=== PATIENT | male | born 1990 | race Caucasian/White ===

== ENCOUNTER → 2023-01-06 | Outpatient (CLI) | payer BC ==
--- NOTE | 2023-01-06 09:18 | US ---
EXAMINATION TYPE: US abdomen limited DATE OF EXAM: 01/06/2023 COMPARISON: NONE CLINICAL INDICATION: Male, 32 years old with history of R19.09OTHER INTRA-ABDOMINAL AND PELVIC SWELLI NG; Left sided pain about a month ago x 1 day - resolved. TECHNIQUE: Multiple sonographic images of the left upper quadrant are obtained. FINDINGS: EXAM MEASUREMENTS: Spleen: 12.1 cm Left Kidney: 12.1 x 5.3 x 5.6 cm [employer] NOTES: no abnormalities seen LLQ 1. Spleen: wnl 2. Left Kidney: wnl IMPRESSION: No evidence for acute process.
--- NOTE | 2023-01-06 09:34 | US ---
EXAMINATION TYPE: US groin LT DATE OF EXAM: 01/06/2023 COMPARISON: NONE CLINICAL INDICATION: Male, 32 years old with history of R19.09OTHER INTRA-ABDOMINAL AND PELVIC SWELLI NG,; Patient felt LLQ pain about a month ago x 1 day - resolved. Doctor felt lump about 2 weeks ago. TECHNIQUE: Grayscale imaging the area of concern. FINDINGS: Potential outpouching on image 4 to the anterior abdominal wall. IMPRESSION: Findings suggestive hernia in the left lower quadrant. This can be confirmed with CT ramiro ia protocol.
== END | disposition home or self-care (01) ==
LOC: RADUSWWP 08:11
PROVIDERS: ATTEND Family Medicine
DX: R19.09 Other intra-abdominal and pelvic swelling, mass and lump (principal)
CPT/HCPCS: 76705

== ENCOUNTER → 2023-01-15 | Outpatient (CLI) | payer BC ==
--- NOTE | 2023-01-15 17:34 | CT ---
EXAMINATION TYPE: CT abdomen pelvis wo con CT DLP: 359.20 mGycm, Automated exposure control for dose reduction was used. DATE OF EXAM: 01/15/2023 11:50 AM COMPARISON: None. CLINICAL INDICATION:Male, 32 years old with history of K40.90 INGUINAL HERNIA; inguinal hernia TECHNIQUE: Axial CT of the abdomen and pelvis. Sagittal and coronal reformats were created on a [employer] workstation. Contrast used: mL of , (none if empty) Oral contrast used: with Oral Contrast (none if empty) FINDINGS: Exam is limited by lack of contrast. LOWER CHEST: Unremarkable ABDOMEN LIVER: Unremarkable GALLBLADDER AND BILE DUCTS: Unremarkable. PANCREAS: Unremarkable. SPLEEN: Unremarkable. ADRENAL GLANDS: Unremarkable. KIDNEYS AND URETERS: No renal calculi. Mildly prominent extrarenal pelves without dilated ureters see n. PELVIS BLADDER: Bladder is mostly decompressed without acute abnormality seen. REPRODUCTIVE: Prostate appears moderately enlarged measuring 5.5 cm transverse. ABDOMEN & PELVIS STOMACH AND BOWEL: Stomach and small bowel nondistended, no evidence of obstruction. Contrast is seen within distal small bowel loops and proximal portions of the colon. The appendix appears within norm al limits. Contrast and some fecal material throughout the colon. The appendix appears within normal limits. PERITONEUM/RETROPERITONEUM: No evidence of pneumoperitoneum or free fluid. VASCULATURE: No evidence of aortic aneurysm. MUSCULOSKELETAL: No acute osseous abnormalities LYMPH NODES: No gross evidence for lymphadenopathy. SOFT TISSUE/ABDOMINAL WALL: Tiny fat-containing right inguinal hernia. Left inguinal fat-containing h ernia, small in size, measures up to 2.1 x 1.7 cm. IMPRESSION: No acute abnormality in the abdomen or pelvis. Small left and tiny right fat-containing inguinal hernias.
== END | disposition home or self-care (01) ==
LOC: RADCTMAIN 07:10
PROVIDERS: ATTEND Family Medicine
DX: K40.90 Unilateral inguinal hernia, without obstruction or gangrene, not specified as recurrent (principal)
CPT/HCPCS: 74176

== ENCOUNTER 2023-09-14 08:13 | Emergency (ER) | payer BC | END 2023-09-14 09:24 | disposition home or self-care (01) | LOC: EC 08:13 | DX: K64.5 Perianal venous thrombosis (principal) | CPT/HCPCS: 46083; 99283 ==